=== PATIENT | male | born 2000 | race Caucasian/White ===

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

== ENCOUNTER → 2020-03-04 | Outpatient (CLI) | payer SELFPAY | END | disposition home or self-care (01) | LOC: COVID19 16:36 | PROVIDERS: ATTEND Family Medicine | DX: Z20.828 Contact with and (suspected) exposure to other viral communicable diseases (principal) ==